=== PATIENT | female | born 1945 | race Caucasian/White ===

== ENCOUNTER 2016-07-31 02:24 | Emergency (ER) | payer MEDICARE, OTHER ==
[~2016-07-31] VITALS: Ht 154.9 cm; Wt 81.8 kg
[2016-07-31 02:29] VITALS: Ht 154.9 cm; Wt 81.8 kg
--- NOTE | 2016-07-31 04:06 | RADRPT ---
PROCEDURE: LEFT KNEE - 3 VIEWS CLINICAL INDICATION: 70-year-old female with left knee pain following trauma. TECHNIQUE: AP, cross-table lateral and oblique view of the left knee were obtained. The images rev iewed on a PACS workstation. COMPARISON: None. FINDINGS: There is a left knee arthroplasty identified. The hardware appears to be in good position. There i s no evidence for an acute fracture or dislocation. Diffuse osteopenia is present. IMPRESSION: 1. No acute fracture or dislocation. 2. Left the arthroplasty. 3. Diffuse osteopenia. .Brenden Lam MD, MD Date Time Electronically viewed and signed by .Brenden Lam MD, MD on 07/31/2016 04:06 .Jak/
[2016-07-31] MEDS ORDERED: TRAM-40 PO (04:36)
--- NOTE | 2016-07-31 05:14 | ERA ---
ER Documentation Chief Complaint Date/Time DATE: 07/31/16 TIME: 05:13 Chief Complaint s/p fall, c/o left knee pain HPI 70-year-old female with a mechanical fall complaining of left knee pain. Denies any head trauma. Denies any other current complaints. ROS All systems reviewed and are negative except as per history of present illness. Medications Home Meds Reported Medications Tramadol Hcl* (Ultram*) 50 Mg Tablet, 50 MG PO Q6H Y for PAIN, TAB 07/31/16 Allergies Allergies: Coded Allergies: codeine (Unverified Allergy, Unknown, 07/31/16) Uncoded Allergies: COUGH MEDICINE (Adverse Reaction, Unknown, 07/31/16) PMhx/Soc History of Surgery: Yes (KNEE REPLACEMENT) Anesthesia Reaction: No Hx Neurological Disorder: No Hx Respiratory Disorders: No Hx Cardiac Disorders: Yes (HTN) Hx Psychiatric Problems: No Hx Miscellaneous Medical Probl: No Hx Alcohol Use: No Hx Substance Use: No Hx Tobacco Use: No Smoking Status: Never smoker Physical Exam Vitals Vital Signs Date Time Temp Pulse Resp B/P Pulse Ox O2 Delivery O2 Flow Rate FiO2 07/31/16 02:29 98.2 109 18 117/91 98 Physical Exam Const: [] Head: Atraumatic Eyes: Normal Conjunctiva ENT: Normal External Ears, Nose and Mouth. Neck: Full range of motion..~ No meningismus. Resp: Clear to auscultation bilaterally Cardio: Regular rate and rhythm, no murmurs Abd: Soft, non tender, non distended. Normal bowel sounds Skin: No petechiae or rashes Back: No midline or flank tenderness Ext: No cyanosis, or edema Neur: Awake and alert Psych: Normal Mood and Affect Procedures/MDM X-ray Knee 3V Interpreted by me: Bones: No fracture Joints: No dislocation Foreign body: None Medical decision makin-year-old female with left knee contusion. Patient however is not able to care for herself. Social work consult has been called. She needs no medical criteria for admission. Discharge per social work. Signed out to Dr. oRss at 6 AM. Departure Diagnosis: Primary Impression: Fall Qualified Code: W19.XXXA - Fall, initial encounter Condition: Stable INDERJIT LANDRUM July 31, 2016 05:14
--- NOTE | 2016-07-31 11:34 | QN ---
Documentation Comment Observation Note: Time: 4 hours Family Hx: Negative for diabetes Evaluation: Multiple exams showed improving symptoms and no evidence of clinical decompensation. The patient will need transfer back to her home by ambulance as she is oxygen dependent. She does have oxygen at home. I spoke with Dr. Bradshaw from [facility] who agrees with the transfer. Our director of social media marketing has seen the patient and feels the patient is stable for outpatient management but will make an Adult Protective Services report to ensure that the patient has a safe living environment. DORA CANCHOLA MD July 31, 2016 11:34
[2016-07-31 12:32] VITALS: BP 109/79; PULSE 96; RESP 18; TEMP 98.4
== END 2016-07-31 12:32 | disposition home or self-care (01) ==
LOC: E/R 02:24
DX: M25.562 Pain in left knee (principal); I10 Essential (primary) hypertension; Z04.3 Encounter for examination and observation following other accident; Z96.659 Presence of unspecified artificial knee joint
CPT/HCPCS: 73562; 82962